=== PATIENT | male | born 1955 | race Caucasian/White ===

== ENCOUNTER 2017-12-15 12:49 | Outpatient (CLI) | payer OTHER | END 2017-12-15 12:50 | disposition short-term general hospital (02) | LOC: EMS 12:49 | PROVIDERS: ATTEND Surgery | DX: R10.10 Upper abdominal pain, unspecified (principal); R11.2 Nausea with vomiting, unspecified ==

== ENCOUNTER 2018-04-22 07:14 | Outpatient (CLI) | payer OTHER | END 2018-04-22 07:15 | disposition short-term general hospital (02) | LOC: EMS 07:14 | PROVIDERS: ATTEND Surgery | DX: M79.651 Pain in right thigh (principal); M79.662 Pain in left lower leg | CPT/HCPCS: A0170; A0425; A0429 ==

== ENCOUNTER 2019-05-12 10:18 | Outpatient (CLI) | payer SELFPAY | END 2019-05-12 10:19 | disposition E | LOC: EMS 10:18 | PROVIDERS: ATTEND Surgery ==